=== PATIENT | female | born 1950 | race Caucasian/White ===

== ENCOUNTER → 2017-01-15 | Outpatient (CLI) | payer MEDICARE ==
--- NOTE | 2017-01-21 15:43 | P.ARTDOP ---
Arterial Doppler LOWER EXTREMITY ARTERIAL DOPPLER: DATE OF SERVICE: 01/15/2017 Reason for study: Leg pain. Doppler waveforms: Multiphasic bilaterally throughout. Pulse volume recording: Normal configuration. Pressure gradients: None significant. Ankle-brachial indices: Greater than 1 on the left and 0.96 on the right.. Toe pressures: 78 on the right, 79 on the left Impression: Normal study proximally. Possible mild disease distally but perfusion adequate for healing. Clinical correlation recommended..
== END | disposition home or self-care (01) ==
LOC: RADUSWWP 09:28
PROVIDERS: ATTEND Family Medicine
DX: M79.661 Pain in right lower leg (principal); M79.662 Pain in left lower leg
CPT/HCPCS: 93923

== ENCOUNTER 2017-09-03 15:14 | Day surgery (SDC) | payer MEDICARE ==
[2017-09-02 09:23] VITALS: BMI 23.3
[~2017-09-03 15:14] MED LIST: CLINDAMYCIN 600 MG in SODIUM CHLORIDE 0.9% IRRIGATIO 250 ML IRRIGATION ONE; CLINDAMYCIN 900 MG in DEXTROSE 5% IN WATER 50 ML IVPB ONE; SODIUM CHLORIDE 0.9% 1,000 ML IV SCH
[2017-09-03 16:03] LABS: Glucose,Whole Blood 95 mg/dL (75-99)
[2017-09-03] MEDS ORDERED: IV FLUID CONTINUATION 1,000 ML IV ONE (18:19)
[2017-09-03] MEDS ORDERED: IOPAMIDOL-250 50ML BTL IV ONE (18:29)
[2017-09-03] MEDS ORDERED: fentaNYL (PF) 50 MCG/ML 2 ML AMP ONE (18:36)
[2017-09-03] MEDS ORDERED: fentaNYL (PF) 50 MCG/ML 2 ML AMP IV ONE (18:36)
[2017-09-03] MEDS ORDERED: MIDAZOLAM 2 MG/2 ML VIAL ONE (18:42)
[2017-09-03] MEDS ORDERED: MIDAZOLAM 2 MG/2 ML VIAL IV ONE (18:44)
[2017-09-03] MEDS ORDERED: LIDOCAINE 1% INJ 10MG/ML (20 ML MDV) SQ ONE (18:44)
--- NOTE | 2017-09-03 19:43 | P.PCN ---
Preoperative Diagnosis: Patient underwent EP procedure under conscious sedation/moderate sedation, monitoring of the level of consciousness and physiologic parameters including but not limited to vital signs and oxygenation. Patient tolerated the procedure well without any acute complications. Start time: 1843 Stop time: 1937 Condition: stable Disposition: same day
[2017-09-03] MEDS ORDERED: HYDROcodone/APAP 5-325MG 1 EACH TAB PO PRN (19:45)
[2017-09-03] MEDS ORDERED: CLINDAMYCIN 900 MG in DEXTROSE 5% IN WATER 50 ML IVPB SCH ×2 (19:45)
[2017-09-03] MEDS ORDERED: ACETAMINOPHEN IV (For NPO) 1,000 MG in EMPTY BAG 1 BAG IVPB ONE (19:45)
[2017-09-03] MEDS ORDERED: LIDOCAINE 2% INJ 20 MG/ML SQ ONE (20:04)
--- NOTE | 2017-09-03 20:13 | P.PCN ---
Preoperative Diagnosis: Loop explant under sedation and local anesthesia. Patient was brought to the EP lab in a fasting state. Written informed consent was obtained prior to the procedure. The subcutaneous device was successfully explanted under local anesthesia. Preoperative antibiotics were administered. The wound was closed in layers and dressed per protocol. Result: Successful loop monitor explantation.
--- NOTE | 2017-09-03 20:13 | PCN ---
PROCEDURE NOTE 67-year-old female presenting to the hospital with a syncopal spell associated with sinus pauses greater than 3 seconds and recurrent bradycardia no reversible causes. She was referred for dual-chamber pacemaker implantation by Dr. Esther Witt and Dr. Barone. PROCEDURE: The patient is brought to the EP lab in a fasting state. Written informed consent was obtained prior to the procedure. The left shoulder area was prepped and draped as per protocol. 1% lidocaine was used for local anesthesia. A 4 cm incision was made parallel to the deltopectoral groove, about 1.5 cm medial to it. The incision was carried down to the level of the pectoralis muscle. A subfascial pocket was made. Hemostasis was assured. The left axillary vein was accessed at 2 separate points under fluoroscopy and via appropriately-sized introducer sheaths 2 leads were positioned in the right heart. The atrial lead was a [employer] serial number [id number], model #1944, 46 cm in length. Passive lead position. The right atrial appendage. P waves were 5.1 mV, pacing impedance 481 ohms, pacing threshold 0.5 V at 0.5 milliseconds 10 V test negative. The RV lead was a 58 cm passive lead model #1948, serial number [id number]. The R- waves were 9 mV, pacing impedance of 954 ohms, pacing threshold 0.5 V at 0.5 milliseconds 10 V test negative. Both leads were secured to the underlying pectoralis fascia using 2 nonabsorbable sutures and then connected to the generator [employer] model number [id number] serial #[id number]. Leads and generator were then placed in subfascial pocket. The wound was closed in 3 layers and dressed per protocol. RESULTS: Successful dual chamber pacemaker implantation for symptomatic sick sinus syndrome. Patient also has orthostatic hypotension syndrome and may require adjustment of her antihypertensive therapy in the future. She will follow up with Dr. Barone as before. She tolerated the procedure well without any acute complications. Pacing was programmed to DDD at 50 ppm. She will be assessed for any need for rate responsiveness in the future as well as the need for rate drop response. MMODL / IJN: [id number] /
[2017-09-03] MEDS: metFORMIN 500 MG TAB PO SCH (21:55)
[2017-09-03 21:58] LABS: Glucose,Whole Blood 116 mg/dL (75-99)
[2017-09-03] MEDS: SODIUM CHLORIDE 0.9% 1,000 ML IV SCH ×3 (22:07→22:08)
[2017-09-03 22:51] LABS: Anisocytosis Slight; Basophils % (A) 1 %; Eosinophils # (A) 0.4 k/uL (0-0.7); Eosinophils % (A) 6 %; HCT 27.1 % (34.0-46.0); HGB 8.4 gm/dL (11.4-16.0); Hypochromasia Slight; Lymphocytes # (A) 1.2 k/uL (1.0-4.8); Lymphocytes % (A) 17 %; MCH 25.4 pg (25.0-35.0); MCHC 30.9 g/dL (31.0-37.0); MCV 82.3 fL (80.0-100.0); Mean Platelet Volume 9.5; Monocytes # (A) 0.4 k/uL (0-1.0); Monocytes % (A) 6 %; Neutrophils % (A) 70 %; Platelet Count 308 k/uL (150-450); RBC 3.29 m/uL (3.80-5.40); RDW 17.5 % (11.5-15.5); WBC 7.2 k/uL (3.8-10.6)
[2017-09-03] MEDS: CLINDAMYCIN 900 MG in DEXTROSE 5% IN WATER 50 ML IVPB SCH ×2 (23:16)
[2017-09-04] MEDS: CLINDAMYCIN 900 MG in DEXTROSE 5% IN WATER 50 ML IVPB SCH ×6 (05:14→17:20)
[2017-09-04] MEDS: ACETAMINOPHEN TAB 325 MG TAB PO PRN ×2 (05:19→17:31)
[2017-09-04 06:20] LABS: Calcium 9.3 mg/dL (8.4-10.2); Potassium 4.9 mmol/L (3.5-5.1)
[2017-09-04 07:17] LABS: Glucose,Whole Blood 86 mg/dL (75-99)
[2017-09-04] MEDS: metFORMIN 500 MG TAB PO SCH ×2 (08:26→17:20)
--- NOTE | 2017-09-04 08:33 | XR ---
EXAMINATION TYPE: XR chest 2V DATE OF EXAM: 09/04/2017 COMPARISON: None HISTORY: 67-year-old female lead placement check TECHNIQUE: Frontal and lateral views FINDINGS: Left anterior chest wall pacemaker generator with right atrial and right ventricular leads. Heart upp er limits of normal in size. Aorta and pulmonary vasculature within normal limits. No consolidation o r pleural effusion. There is a linear density that is vertically oriented projecting at the right hil um of uncertain etiology, possible external artifact and should be reassessed at follow-up. IMPRESSION: 1. 2-lead left-sided pacemaker. 2. No acute cardiopulmonary process. 3. A vertically oriented linear density projecting at the right hilum could be external artifact. The etiology is unclear. Attention on follow-up.
[2017-09-04] MEDS ORDERED: ATORVASTATIN 40 MG TAB PO SCH (09:00)
[2017-09-04] MEDS ORDERED: amLODIPine 2.5 MG TAB PO SCH (09:00)
[2017-09-04] MEDS ORDERED: LOSARTAN 50 MG TAB PO SCH (09:00)
[2017-09-04] MEDS ORDERED: ASPIRIN 81 MG PO SCH (09:00)
--- NOTE | 2017-09-04 09:02 | P.DS ---
Providers Attending physician: Jules Veras Primary care physician: Ron [facility] Course: Patient is doing well. She has mild discomfort in the pacemaker site but otherwise no chest discomfort no shortness of breath no dizziness lightheadedness she lying comfortably in bed. She did need some pain medications through the night, Tylenol On examination she is afebrile 97.8F pulse rate in the 60s blood pressure 119/ 52 mmHg Breath sounds are clear no rhonchi no crackles Heart sounds are normal normal S1 normal S2 Abdomen soft nontender Extremities warm no edema Pacemaker site is healing well there is no hematoma, minimal soakage noted Impression Symptomatic sick sinus syndrome with presyncope and syncope, sinus pauses as well as sinus bradycardia documented in the absence of any reversible causes Status post dual-chamber pacemaker implant and explantation of the loop monitor Hypertension Plan Discharge home after completion of IV antibiotics Pacemaker interrogation today Chest x-ray was reviewed and does not show any evidence for pneumothorax Follow-up in the device clinic in [address] Sanchez as scheduled Watch for orthostatic hypotension and dysautonomia as a future cause of dizzy spells Patient Condition at Discharge: Stable Plan - Discharge Summary Discharge Rx Participant: Yes New Discharge Prescriptions: Continue RX: diphenhydrAMINE [Benadryl] 25 mg PO HS PRN PRN Reason: Allergy Symptoms RX: Olmesartan Medoxomil 40 mg PO DAILY RX: Atorvastatin [Lipitor] 40 mg PO DAILY RX: metFORMIN HCL [Glucophage] 500 mg PO BID RX: amLODIPine [Norvasc] 2.5 mg PO DAILY RX: Aspirin [Adult Low Dose Aspirin EC] 81 mg PO DAILY Discharge Medication List RX: Aspirin [Adult Low Dose Aspirin EC] 81 mg PO DAILY 05/11/17 [History] RX: Atorvastatin [Lipitor] 40 mg PO DAILY 05/11/17 [History] RX: Olmesartan Medoxomil 40 mg PO DAILY 05/11/17 [History] RX: amLODIPine [Norvasc] 2.5 mg PO DAILY 05/11/17 [History] RX: diphenhydrAMINE [Benadryl] 25 mg PO HS PRN 05/11/17 [History] RX: metFORMIN HCL [Glucophage] 500 mg PO BID 05/11/17 [History] Follow up Appointment(s)/Referral(s): Jaylen Barone MD [STAFF PHYSICIAN] - 6 Weeks Activity/Diet/Wound Care/Special Instructions: PATIENT EDUCATION MATERIAL Instructions following a heart rhythm device implant. 1. Keep dressing DRY for 5 DAYS. You may cover the area with Saran or Cling Wrap, prior to a shower. 2. The dressing will be removed in the Device Clinic @ [facility]. Absorbable sutures were used to close the wound. 3. Avoid raising the [left] arm above the shoulder level. [4 week restriction] 4. Avoid arm movements, like backscratching, rubbing the head, or pulling on a cord. (4 weeks restriction) 5. Gentle range of motion movements of the shoulder, closest to the incision should be performed to avoid a frozen shoulder. (Pendulum exercises of the shoulder) 6. The opposite arm may be used freely. 7. Avoid driving for 7 days. 8. Avoid activities such as golfing, swimming, weed whacking, lifting more than 10 pounds weight, bowling, gymnastics and weight training/lifting. (6 weeks restriction) 9. Activities such as wood chopping with an axe, pull-ups in the gymnasium, power lifting, arc-welding, being close to home induction cooktops will always be a problem. 10. Arm sling is a mere reminder not to raise the arm above the head. However you do not need to keep the arm completely immobilized. Your free to move the arm and use it and for normal activities. In case of any problems, please call [facility], Ad [place], @ [phone], Attention: Device Clinic Follow-up with Dr. Sanchez as scheduled Follow the device clinic in 5 days Discharge Disposition: HOME SELF-CARE
[2017-09-04 11:20] VITALS: BP 119/63; PULSE 69; RESP 18; TEMP 98.4
[2017-09-04 12:14] LABS: Glucose,Whole Blood 100 mg/dL (75-99)
== END 2017-09-04 19:05 | disposition home or self-care (01) ==
LOC: CATHEP 15:14 → 3OBS 19:38 → CATHEP 09-04 19:05
PROVIDERS: ATTEND Internal Medicine Clinical Cardiac Electrophysiology
DX: I49.5 Sick sinus syndrome (principal); Z45.09 Encounter for adjustment and management of other cardiac device; I10 Essential (primary) hypertension; E11.9 Type 2 diabetes mellitus without complications; Z79.84 Long term (current) use of oral hypoglycemic drugs; H35.30 Unspecified macular degeneration; M19.90 Unspecified osteoarthritis, unspecified site; Z86.73 Personal history of transient ischemic attack (TIA), and cerebral infarction without residual deficits; Z87.891 Personal history of nicotine dependence; Z79.82 Long term (current) use of aspirin; Z79.899 Other long term (current) drug therapy; Z88.1 Allergy status to other antibiotic agents; Z88.0 Allergy status to penicillin
CPT/HCPCS: 33208; 33284; 80048; 85025; 83036; 71046; C1769 ×2; C1892; C1898; C1785; J2001 ×2; J2250; J3010; Q9966

== ENCOUNTER → 2022-05-22 | Day surgery (SDC) | payer MEDICARE ==
[2022-05-19 13:24] VITALS: BMI 27.4
[~2022-05-22] MED LIST changes: -CLINDAMYCIN 600 MG in SODIUM CHLORIDE 0.9% IRRIGATIO 250 ML IRRIGATION ONE; -CLINDAMYCIN 900 MG in DEXTROSE 5% IN WATER 50 ML IVPB ONE; +IOPAMIDOL-250 50ML BTL IV ONE
[2022-05-22 13:21] LABS: Glucose,Whole Blood 143 mg/dL (70-110)
--- NOTE | 2022-05-22 13:36 | P.EPPROC ---
- EP Procedure Note Electrophysiology Procedure Note: Diagnosis Atrial lead malfunction Patient is a dual-chamber pacemaker in situ Procedure Cinefluoroscopy of the leads performed Atrial lead in the right atrium, not in the right atrial appendage No fractures or breaks noted RV lead in the RV apex Left upper extremity venogram 15 mL IV dye injected in the left arm Mild stenosis at the subclavian/axillary junction with the bridging collateral Stenosis is mild and should accommodate 1-lead Pacemaker interrogation with reprogramming The [employer] pacemaker was interrogated Noise noted in the atrial lead, minimal P waves noted in both the unipolar and bipolar configuration No atrial capture noted RV lead functioning normally Pacemaker was programmed to a VVI mode Plan Implantation of new atrial lead Dual-chamber device is approaching MURRAY, a new device would be implanted
== END ==
LOC: CATHEP 12:39
PROVIDERS: ATTEND Internal Medicine Clinical Cardiac Electrophysiology
DX: I87.1 Compression of vein (principal); E11.9 Type 2 diabetes mellitus without complications; I10 Essential (primary) hypertension; E78.5 Hyperlipidemia, unspecified; F17.210 Nicotine dependence, cigarettes, uncomplicated; Z79.899 Other long term (current) drug therapy
CPT/HCPCS: 36005; 75820; Q9966

== ENCOUNTER 2022-06-12 14:35 | Day surgery (SDC) | payer MEDICARE ==
[2022-06-11 09:15] VITALS: BMI 27.4
[~2022-06-12 14:35] MED LIST changes: +CLINDAMYCIN 600 MG in SODIUM CHLORIDE 0.9% 250 ML IRRIGATION PRN; +CLINDAMYCIN 900 MG in DEXTROSE 5% IN WATER 50 ML IVPB PRN; -IOPAMIDOL-250 50ML BTL IV ONE; -SODIUM CHLORIDE 0.9% 1,000 ML IV SCH
[2022-06-12 15:36] LABS: Glucose,Whole Blood 93 mg/dL (70-110)
[2022-06-12 15:40] VITALS: RESP 16
[2022-06-12] MEDS ORDERED: SODIUM CHLORIDE 0.9% 500 ML 500 ML IV ONE (15:41)
[2022-06-12 16:02] LABS: Basophils % (A) 0 %; Eosinophils # (A) 0.1 k/uL (0-0.7); Eosinophils % (A) 2 %; HCT 35.8 % (34.0-46.0); HGB 11.9 gm/dL (11.4-16.0); Lymphocytes # (A) 0.8 k/uL (1.0-4.8); Lymphocytes % (A) 16 %; MCH 32.6 pg (25.0-35.0); MCHC 33.4 g/dL (31.0-37.0); MCV 97.7 fL (80.0-100.0); Mean Platelet Volume 9.1; Monocytes # (A) 0.3 k/uL (0-1.0); Monocytes % (A) 6 %; Neutrophils # (A) 3.9 k/uL (1.3-7.7); Neutrophils % (A) 74 %; Platelet Count 171 k/uL (150-450); RBC 3.66 m/uL (3.80-5.40); RDW 15.8 % (11.5-15.5); WBC 5.2 k/uL (3.8-10.6)
[2022-06-12 16:10] LABS: Calcium 8.3 mg/dL (8.4-10.2); Potassium 4.6 mmol/L (3.5-5.1)
[2022-06-12] MEDS ORDERED: MIDAZOLAM 2 MG/2 ML VIAL ONE (18:48)
[2022-06-12] MEDS ORDERED: fentaNYL (PF) 50 MCG/ML 2 ML AMP ONE (18:48)
[2022-06-12] MEDS ORDERED: PROPOFOL 10 MG/ML 20 ML VIAL IV ONE (18:48)
[2022-06-12] MEDS ORDERED: VANCOMYCIN 1,000 MG VIAL ONE (18:48)
[2022-06-12] MEDS ORDERED: VANCOMYCIN 1,000 MG in SODIUM CHLORIDE 0.9% 250 ML IVPB ONE (19:13)
[2022-06-12] MEDS ORDERED: LIDOCAINE 1% INJ 10MG/ML (30 ML VIAL-PF) SQ ONE (19:29)
[2022-06-12] MEDS ORDERED: ACETAMINOPHEN TAB 325 MG TAB PO PRN (20:50)
--- NOTE | 2022-06-12 20:55 | P.EPPROC ---
- EP Procedure Note Electrophysiology Procedure Note: Diagnosis Chronic Atrial lead malfunction Device approaching MURRAY Procedure performed New atrial lead implant Old atrial lead was capped and secured to the muscle Dual-chamber pacemaker generator change Details Patient was brought to the EP lab in a fasting state. Written informed consent obtained prior to the procedure. IV antibiotics administered Left pectoral area prepped and draped as per protocol. An incision made of the wrist surgical site. Scar tissue excised Incision carried down to the level of the generator Old generator explanted Leads freed from the surrounding soft tissue and capsule Partial capsulectomy performed Axillary vein access obtained Sheath placed A screw-in [employer] clerical assistant placed in the right atrium: 46 cm tendril STS model #2088 TC Lead screwed in the right atrial appendage. Good turgor with injury excellent thresholds good stability P waves 3.9 mV, pacing impedance 600 ohms and pacing threshold 1 warted 0.4 ms Bogata test negative Sheaths removed and leads secured to the muscle Old lead capped and secured to the muscle New generator implanted Old generator explanted The new dual-chamber pacemaker generator was a [employer], [employer] assurity MRI RV threshold 1 V at 0.8 ms, R waves greater than 12 mV and pacing impedance 550 ohms Device programmed to DDD mode 50-120 PPM VIP mode to avoid RV pacing Patient HE well without any acute complications Pocket irrigated with antibiotic solution Antibiotic pouch placed Wound closed in 3 layers and dressed per protocol
[2022-06-12] MEDS: SODIUM CHLORIDE 0.9% 1,000 ML IV SCH (21:46)
[2022-06-13] MEDS: CLINDAMYCIN 900 MG in DEXTROSE 5% IN WATER 50 ML IVPB SCH ×4 (00:13→05:49)
[2022-06-13] MEDS: SODIUM CHLORIDE 0.9% 1,000 ML IV SCH (02:59)
[2022-06-13 06:07] LABS: Glucose,Whole Blood 61 mg/dL (70-110)
[2022-06-13 06:28] LABS: Glucose,Whole Blood 61 mg/dL (70-110)
[2022-06-13 06:48] LABS: Glucose,Whole Blood 52 mg/dL (70-110)
[2022-06-13 07:10] LABS: Glucose,Whole Blood 80 mg/dL (70-110)
--- NOTE | 2022-06-13 08:07 | P.DS ---
Providers Attending physician: Jules Veras Primary care physician: Ron [facility] Course: Patient was resting comfortably in bed Pacemaker site is healed well No hematoma Minimal soakage On examination normal heart sounds Breath sounds are equal Pulse rate in the 50s and 60s Blood pressure 136/62 mmHg Impression Sinus bradycardia status post dual-chamber pacemaker implantation many years back Atrial lead malfunction Underwent implantation of a new atrial lead successfully and the dual-chamber pacemaker generator change Plan discharge home today after pacemaker interrogation Follow-up with Dr. Sanchez in a week in the device clinic Plan - Discharge Summary Discharge Rx Participant: No New Discharge Prescriptions: Continue RX: diphenhydrAMINE [Benadryl] 25 mg PO HS PRN PRN Reason: Allergy Symptoms RX: Olmesartan Medoxomil 40 mg PO DAILY RX: Atorvastatin [Lipitor] 40 mg PO HS RX: Aspirin [Adult Low Dose Aspirin EC] 81 mg PO DAILY RX: Gabapentin [Neurontin] 100 mg PO HS RX: Metoprolol Succinate [Metoprolol Succinate ER] 25 mg PO DAILY Discharge Medication List RX: Aspirin [Adult Low Dose Aspirin EC] 81 mg PO DAILY 05/11/17 [History] RX: Atorvastatin [Lipitor] 40 mg PO HS 05/11/17 [History] RX: Olmesartan Medoxomil 40 mg PO DAILY 05/11/17 [History] RX: diphenhydrAMINE [Benadryl] 25 mg PO HS PRN 05/11/17 [History] RX: Gabapentin [Neurontin] 100 mg PO HS 05/19/22 [History] RX: Metoprolol Succinate [Metoprolol Succinate ER] 25 mg PO DAILY 05/19/22 [History] Follow up Appointment(s)/Referral(s): Jaylen Barone MD [STAFF PHYSICIAN] - 1 Week Activity/Diet/Wound Care/Special Instructions: PATIENT EDUCATION MATERIAL Instructions following a heart rhythm device implant. 1. Keep dressing DRY for 5 DAYS. You may cover the area with Saran or Cling Wrap, prior to a shower. 2. The dressing will be removed in the Device Clinic at [facility]. Absorbable sutures were used to close the wound. 3. Avoid raising the left arm above the shoulder level. 4 week restriction 4. Avoid arm movements, like backscratching, rubbing the head, or pulling on a cord. 4 weeks restriction 5. Gentle range of motion movements of the shoulder, closest to the incision should be performed to avoid a frozen shoulder. (Pendulum exercises of the shoulder) 6. The opposite arm may be used freely. 7. Avoid driving for 7 days. 8. Avoid activities such as golfing, swimming, weed whacking, lifting more than 10 pounds weight, bowling, gymnastics and weight training/lifting. (6 weeks restriction) 9. Activities such as wood chopping with an axe, pull-ups in the gymnasium, power lifting, arc-welding, being close to home induction cooktops will always be a problem. 10. Arm sling is only a reminder not to raise the arm above the head. You do not need to keep the arm completely immobilized. Your free to move the arm and use it and for normal activities. In case of any problems, please call [facility], [place], @ [phone], Attention: Device Clinic Device clinic follow-up in 5 days Follow-up with primary home housekeeper in 2-3 months Discharge Disposition: HOME SELF-CARE
--- NOTE | 2022-06-13 08:15 | XR ---
EXAMINATION TYPE: XR chest 1V portable DATE OF EXAM: 06/13/2022 Comparison: 09/04/2017 Clinical History: 71-year-old female Lead placement check Findings: Left anterior chest wall pacemaker generator with 2 right atrial and right ventricular leads. Cholecy stectomy clips. Heart mild to moderately enlarged. No jevon consolidation or pleural effusion. Impression: Mild to moderate cardiomegaly. No definite acute process.
[2022-06-13 09:07] VITALS: BP 144/59; PULSE 70; TEMP 97.8
== END 2022-06-13 10:18 | disposition home or self-care (01) ==
LOC: CATHEP 14:35 → 6NMEDSUR 20:30 → CATHEP 06-13 10:18
PROVIDERS: ATTEND Internal Medicine Clinical Cardiac Electrophysiology
DX: T82.110A Breakdown (mechanical) of cardiac electrode, initial encounter (principal); I49.5 Sick sinus syndrome; E78.5 Hyperlipidemia, unspecified; E11.9 Type 2 diabetes mellitus without complications; I10 Essential (primary) hypertension; F17.210 Nicotine dependence, cigarettes, uncomplicated; Z79.899 Other long term (current) drug therapy; Z79.82 Long term (current) use of aspirin
CPT/HCPCS: 33206; 33233; 80048; 85025; 71045; C1769 ×2; C1892; C1898; C1785; J2250; J3370; J2001; J3010; J2704

== ENCOUNTER 2024-03-11 12:50 | Inpatient (IN) | payer MEDICARE ==
--- NOTE | 2024-03-11 13:32 | ED ---
General Adult HPI - General Chief complaint: Syncope Stated complaint: Syncope Time Seen by Provider: 03/11/24 12:51 Source: patient, EMS Mode of arrival: EMS Limitations: no limitations - History of Present Illness Initial comments: 73-year-old female with past medical history of CVA, diabetes, pacemaker placement who presents to the emergency department after a syncopal episode. Patient was shopping at [employer] when she passed out. She states that she was checking out at the front when she felt lightheaded. Then asked thing she knew she was on the ground and staff members were tending to her. EMS was called to the scene and found the patient to have an extremely low blood pressure. Accu- Chek was normal. Patient transported to our facility for further evaluation. Heart rate was noted to be in the 40s. Patient does have a pacemaker. States that it was inserted for low heart rate. Has yearly cardiology follow-ups. She denies any chest pain. Admits that she did not eat breakfast this morning. She denies any injuries from her syncopal episode. No shortness of breath. Denies fevers, chills or cough. No other alleviating, precipitating or modifying factors - Related Data Home Medications Medication Instructions Recorded Confirmed Aspirin [Adult Low Dose Aspirin EC] 81 mg PO DAILY 05/11/17 03/11/24 Atorvastatin [Lipitor] 40 mg PO HS 05/11/17 03/11/24 Gabapentin [Neurontin] 100 mg PO HS 05/19/22 03/11/24 amLODIPine [Norvasc] 5 mg PO DAILY 03/11/24 03/11/24 Previous Rx's Medication Instructions Recorded Olmesartan Medoxomil 20 mg PO DAILY #0 03/12/24 Allergies Allergy/AdvReac Type Severity Reaction Status Date / Time amoxicillin Allergy Rash/Hives Verified 03/11/24 15:23 azithromycin Allergy Rash/Hives Verified 03/11/24 15:23 [From Zithromax Z-Bulmaro] erythromycin base Allergy Rash/Hives Verified 03/11/24 15:23 Review of Systems ROS Statement: Those systems with pertinent positive or pertinent negative responses have been documented in the HPI. ROS Other: All systems not noted in ROS Statement are negative. Past Medical History Past Medical History: CVA/TIA, Diabetes Mellitus, Hearing Disorder / Deafness, Hyperlipidemia, Hypertension, Osteoarthritis (OA), Syncope Additional Past Medical History / Comment(s): SEE DR WELCH'S H&P FOR CARDIAC HISTORY, DIET CONTROLLED DIABETIC. occ. rt arm weakness and slight memory issue since stroke 07/31/15, PAST HX-migraines History of Any Multi-Drug Resistant Organisms: None Reported Past Surgical History: Adenoidectomy, Cholecystectomy, Pacemaker, Tonsillectomy Additional Past Surgical History / Comment(s): carrol cataracts with lens implants, loop recorder. since removed 06/2017, pacemaker generator change and atrial lead insertion 06/12/2022 Past Anesthesia/Blood Transfusion Reactions: Motion Sickness, Postoperative Nausea & Vomiting (PONV) Type of Cardiac Device: Permanent Pacemaker Device Placement Date:: 2017 Past Psychological History: No Psychological Hx Reported Smoking Status: Former smoker Past Alcohol Use History: None Reported Past Drug Use History: None Reported - Past Family History Mother Family Medical History: CVA/TIA, Hypertension Sister(s) Family Medical History: Cancer Additional Family Medical History / Comment(s): uterine and lymphoma Father Family Medical History: No Reported History General Exam Limitations: no limitations General appearance: alert, in no apparent distress Head exam: Present: atraumatic, normocephalic, normal inspection Eye exam: Present: normal appearance, PERRL, EOMI. Absent: scleral icterus, conjunctival injection, periorbital swelling ENT exam: Present: normal exam, mucous membranes moist Neck exam: Present: normal inspection. Absent: tenderness, meningismus, lymph adenopathy Respiratory exam: Present: normal lung sounds bilaterally. Absent: respiratory distress, wheezes, rales, rhonchi, stridor Cardiovascular Exam: Present: normal rhythm, bradycardia, normal heart sounds. Absent: systolic murmur, diastolic murmur, rubs, gallop, clicks GI/Abdominal exam: Present: soft, normal bowel sounds. Absent: distended, tenderness, guarding, rebound, rigid Extremities exam: Present: normal inspection, full ROM, normal capillary refill. Absent: tenderness, pedal edema, joint swelling, calf tenderness Back exam: Present: normal inspection Neurological exam: Present: alert, oriented X3, CN II-XII intact Psychiatric exam: Present: normal affect, normal mood Skin exam: Present: warm, dry, intact, normal color. Absent: rash Course Vital Signs 03/11/24 03/11/24 03/11/24 12:51 14:30 17:41 Temperature 97.8 F Pulse Rate 51 L 50 L 51 L Pulse Rate [ Right Standing Panel Wirer ] Pulse Rate [ Right Supine Panel Wirer ] Respiratory 18 18 18 Rate Blood Pressure 143/61 130/58 150/55 Blood Pressure [Right Arm Sitting] Blood Pressure [Right Arm Standing] Blood Pressure [Right Arm Supine] O2 Sat by Pulse 97 96 99 Oximetry 03/11/24 03/11/24 19:26 20:37 Temperature 97.8 F Pulse Rate 69 Pulse Rate [ 74 Right Standing Panel Wirer ] Pulse Rate [ 49 L Right Supine Panel Wirer ] Respiratory 16 15 Rate Blood Pressure 152/47 Blood Pressure 161/71 [Right Arm Sitting] Blood Pressure 152/47 [Right Arm Standing] Blood Pressure 147/55 [Right Arm Supine] O2 Sat by Pulse 94 L 96 Oximetry Medical Decision Making - Medical Decision Making Was pt. sent in by a medical professional or institution (, PA, [employer], urgent care, hospital, or fci...) When possible be specific @ -No Did you speak to anyone other than the patient for history (EMS, parent, family, police, friend...)? What history was obtained from this source @ -Spoke with EMS for history Did you review nursing and triage notes (agree or disagree)? Why? @ -I reviewed and agree with nursing and triage notes Were old charts reviewed (outside hosp., previous admission, EMS record, old EKG, old radiological studies, urgent care reports/EKG's, fci records)? Report findings @ -No old charts were reviewed Differential Diagnosis (chest pain, altered mental status, abdominal pain women, abdominal pain men, vaginal bleeding, weakness, fever, dyspnea, syncope, headache, dizziness, GI bleed, back pain, seizure, CVA, palpatations, mental health, musculoskeletal)? @ -Differential Syncope: Valvular disease, hypertrophic cardiomyopathy, pulmonary embolism, tamponade, tachycardia, bradycardia, [place], hypovolemia, hemorrhage, dissection, anemia, intracranial hemorrhage, seizure, hypoglycemia, carbon monoxide poisoning, this is not meant to be an all-inclusive list. EKG interpreted by me (3pts min.). @ -Yes and demonstrates atrial pacemaker with a rate of 49. NE interval 165. QRS 82. QTc of 408. No acute ST segment elevations or depressions X-rays interpreted by me (1pt min.). @ -Yes and demonstrates retrocardiac opacity CT interpreted by me (1pt min.). @ -None done U/S interpreted by me (1pt. min.). @ -None done What testing was considered but not performed or refused? (CT, X-rays, U/S, labs)? Why? @ -None What meds were considered but not given or refused? Why? @ -None Did you discuss the management of the patient with other professionals (professionals i.e. DrKristopher, PA, [employer], lab, RT, psych nurse, group social worker, cemetery manager, teacher, police officer booking, case picker)? Give summary @ -Spoke with Dr. Guerrero for admission Was smoking cessation discussed for >3mins.? @ -No Was critical care preformed (if so, how long)? @ -No Were there social determinants of health that impacted care today? How? (Homelessness, low income, unemployed, alcoholism, drug addiction, transportation, low edu. Level, literacy, decrease access to med. care, skilled nursing, rehab)? @ -No Was there de-escalation of care discussed even if they declined (Discuss DNR or withdrawal of care, Hospice)? DNR status @ -No What co-morbidities impacted this encounter? (DM, HTN, Smoking, COPD, CAD, Cancer, CVA, ARF, Chemo, Hep., AIDS, mental health diagnosis, sleep apnea, morbid obesity)? @ -Pacemaker Was patient admitted / discharged? Hospital course, mention meds given and route, prescriptions, significant lab abnormalities, going to OR and other pertinent info. @ -Upon arrival patient seen and evaluated in room 1. Thorough history and physical exam was performed. IV was established and laboratory studies are conducted. Chest x-ray was performed. We did interrogate the patient's [employer] device which demonstrates that her low threshold is 50. Patient is consistently pacing below 50. Because of this I did recommend admission for cardiology consultation. Spoke with Dr. Guerrero for admission. I will hold off on antibiotics as patient has no clinical signs of pneumonia Undiagnosed new problem with uncertain prognosis? @ -No Drug Therapy requiring intensive monitoring for toxicity (Heparin, Nitro, Insulin, Cardizem)? @ -No Were any procedures done? @ -No Diagnosis/symptom? @ -Acute syncope, bradycardia Acute, or Chronic, or Acute on Chronic? @ -Acute Uncomplicated (without systemic symptoms) or Complicated (systemic symptoms)? @Complicated Side effects of treatment? @ -No Exacerbation, Progression, or Severe Exacerbation? @ -No Poses a threat to life or bodily function? How? (Chest pain, [place], [place], pneumonia, PE, COPD, DKA, ARF, appy, cholecystitis, CVA, Diverticulitis, Homicidal, [facility] icidal, threat to staff... and all critical care pts) @ -No - Lab Data Result diagrams: 03/12/24 07:09 03/12/24 07:09 Lab Results 03/11/24 03/11/24 03/11/24 Range/Units 13:49 13:49 13:49 WBC 7.1 (3.8-10.6) k/uL RBC 3.61 L (3.80-5.40) m/uL Hgb 11.1 L (11.4-16.0) gm/dL Hct 33.4 L (34.0-46.0) % MCV 92.6 (80.0-100.0) fL MCH 30.7 (25.0-35.0) pg MCHC 33.2 (31.0-37.0) g/dL RDW 16.3 H (11.5-15.5) % Plt Count 212 (150-450) k/uL MPV 9.6 Neutrophils % 76 % Lymphocytes % 14 % Monocytes % 6 % Eosinophils % 3 % Basophils % 0 % Neutrophils # 5.4 (1.3-7.7) k/uL Lymphocytes # 1.0 (1.0-4.8) k/uL Monocytes # 0.4 (0-1.0) k/uL Eosinophils # 0.2 (0-0.7) k/uL Basophils # 0.0 (0-0.2) k/uL Anisocytosis Slight PT 10.1 (10.0-12.5) sec INR 0.9 (<1.2) APTT 21.4 L (22.0-30.0) sec Sodium 140 (137-145) mmol/L Potassium 4.6 (3.5-5.1) mmol/L Chloride 109 H (98-107) mmol/L Carbon Dioxide 27 (22-30) mmol/L Anion Gap 4 mmol/L BUN 22 H (7-17) mg/dL Creatinine 1.85 H (0.52-1.04) mg/dL Est GFR (CKD-EPI)AfAm 31 (>60 ml/min/1.73 sqM) Est GFR (CKD-EPI)NonAf 27 (>60 ml/min/1.73 sqM) Glucose 158 H (74-99) mg/dL Calcium 8.8 (8.4-10.2) mg/dL Magnesium (1.6-2.3) mg/dL Total Bilirubin 0.6 (0.2-1.3) mg/dL AST 27 (14-36) U/L ALT 23 (4-34) U/L Alkaline Phosphatase 129 H (38-126) U/L Troponin I (0.000-0.034) ng/mL Total Protein 5.8 L (6.3-8.2) g/dL Albumin 3.4 L (3.5-5.0) g/dL Procalcitonin (0.02-0.50) ng/mL TSH (0.465-4.680) mIU/L Free T4 (0.78-2.19) ng/dL 03/11/24 03/11/24 03/11/24 Range/Units 13:49 13:49 13:49 WBC (3.8-10.6) k/uL RBC (3.80-5.40) m/uL Hgb (11.4-16.0) gm/dL Hct (34.0-46.0) % MCV (80.0-100.0) fL MCH (25.0-35.0) pg MCHC (31.0-37.0) g/dL RDW (11.5-15.5) % Plt Count (150-450) k/uL MPV Neutrophils % % Lymphocytes % % Monocytes % % Eosinophils % % Basophils % % Neutrophils # (1.3-7.7) k/uL Lymphocytes # (1.0-4.8) k/uL Monocytes # (0-1.0) k/uL Eosinophils # (0-0.7) k/uL Basophils # (0-0.2) k/uL Anisocytosis PT (10.0-12.5) sec INR (<1.2) APTT (22.0-30.0) sec Sodium (137-145) mmol/L Potassium (3.5-5.1) mmol/L Chloride (98-107) mmol/L Carbon Dioxide (22-30) mmol/L Anion Gap mmol/L BUN (7-17) mg/dL Creatinine (0.52-1.04) mg/dL Est GFR (CKD-EPI)AfAm (>60 ml/min/1.73 sqM) Est GFR (CKD-EPI)NonAf (>60 ml/min/1.73 sqM) Glucose (74-99) mg/dL Calcium (8.4-10.2) mg/dL Magnesium 1.9 (1.6-2.3) mg/dL Total Bilirubin (0.2-1.3) mg/dL AST (14-36) U/L ALT (4-34) U/L Alkaline Phosphatase (38-126) U/L Troponin I <0.012 (0.000-0.034) ng/mL Total Protein (6.3-8.2) g/dL Albumin (3.5-5.0) g/dL Procalcitonin 0.04 (0.02-0.50) ng/mL TSH (0.465-4.680) mIU/L Free T4 (0.78-2.19) ng/dL 03/11/24 Range/Units 13:49 WBC (3.8-10.6) k/uL RBC (3.80-5.40) m/uL Hgb (11.4-16.0) gm/dL Hct (34.0-46.0) % MCV (80.0-100.0) fL MCH (25.0-35.0) pg MCHC (31.0-37.0) g/dL RDW (11.5-15.5) % Plt Count (150-450) k/uL MPV Neutrophils % % Lymphocytes % % Monocytes % % Eosinophils % % Basophils % % Neutrophils # (1.3-7.7) k/uL Lymphocytes # (1.0-4.8) k/uL Monocytes # (0-1.0) k/uL Eosinophils # (0-0.7) k/uL Basophils # (0-0.2) k/uL Anisocytosis PT (10.0-12.5) sec INR (<1.2) APTT (22.0-30.0) sec Sodium (137-145) mmol/L Potassium (3.5-5.1) mmol/L Chloride (98-107) mmol/L Carbon Dioxide (22-30) mmol/L Anion Gap mmol/L BUN (7-17) mg/dL Creatinine (0.52-1.04) mg/dL Est GFR (CKD-EPI)AfAm (>60 ml/min/1.73 sqM) Est GFR (CKD-EPI)NonAf (>60 ml/min/1.73 sqM) Glucose (74-99) mg/dL Calcium (8.4-10.2) mg/dL Magnesium (1.6-2.3) mg/dL Total Bilirubin (0.2-1.3) mg/dL AST (14-36) U/L ALT (4-34) U/L Alkaline Phosphatase (38-126) U/L Troponin I (0.000-0.034) ng/mL Total Protein (6.3-8.2) g/dL Albumin (3.5-5.0) g/dL Procalcitonin (0.02-0.50) ng/mL TSH 5.400 H (0.465-4.680) mIU/L Free T4 1.43 (0.78-2.19) ng/dL Disposition Clinical Impression: Syncope, Bradycardia Disposition: ADMITTED IP TO THIS [facility] Condition: Stable Is patient prescribed a controlled substance at d/c from ED?: No Time of Disposition: 16:08 Decision to Admit Reason: Admit from EC Decision Date: 03/11/24 Decision Time: 16:08
[2024-03-11] MEDS: SODIUM CHLORIDE 0.9% 500 ML 500 ML IV STA (13:50)
--- NOTE | 2024-03-11 13:54 | XR ---
EXAMINATION TYPE: XR chest 2V DATE OF EXAM: 03/11/2024 1:44 PM COMPARISON: Chest radiographs from 06/13/2022 TECHNIQUE: XR chest 2V Frontal and lateral views of the chest. CLINICAL INDICATION:Female, 73 years old with history of syncope; FINDINGS: Lungs/Pleura: No pleural effusion or pneumothorax. Retrocardiac airspace opacity on lateral view. Pulmonary vascularity: Unremarkable. Heart/mediastinum: Cardiomediastinal silhouette is enlarged and stable. Three lead cardiac conduction device overlying the left hemithorax with lead tips projecting over the right ventricle, right atriu m and coronary sinus. Musculoskeletal: No acute osseous pathology. IMPRESSION: 1. Retrocardiac airspace opacity concerning for pneumonia. 2. Cardiomegaly. [facility], , 03/11/2024 1:52 PM
[2024-03-11 13:59] LABS: Anisocytosis Slight; Basophils % (A) 0 %; Eosinophils # (A) 0.2 k/uL (0-0.7); Eosinophils % (A) 3 %; HCT 33.4 % (34.0-46.0); HGB 11.1 gm/dL (11.4-16.0); Lymphocytes % (A) 14 %; MCH 30.7 pg (25.0-35.0); MCHC 33.2 g/dL (31.0-37.0); MCV 92.6 fL (80.0-100.0); Mean Platelet Volume 9.6; Monocytes # (A) 0.4 k/uL (0-1.0); Monocytes % (A) 6 %; Neutrophils # (A) 5.4 k/uL (1.3-7.7); Neutrophils % (A) 76 %; Platelet Count 212 k/uL (150-450); RBC 3.61 m/uL (3.80-5.40); RDW 16.3 % (11.5-15.5); WBC 7.1 k/uL (3.8-10.6)
[2024-03-11 14:14] LABS: INR 0.9 (<1.2); Prothrombin Time 10.1 sec (10.0-12.5)
[2024-03-11 14:15] LABS: Partial Thromboplastin Time 21.4 sec (22.0-30.0)
[2024-03-11 14:19] LABS: ALT 23 U/L (4-34); AST 27 U/L (14-36); African American GFR (CKD) 31 (>60 ml/min/1.73 sqM); Albumin 3.4 g/dL (3.5-5.0); Alkaline Phosphatase 129 U/L (38-126); Anion Gap 4 mmol/L; Blood Urea Nitrogen 22 mg/dL (7-17); Calcium 8.8 mg/dL (8.4-10.2); Carbon Dioxide 27 mmol/L (22-30); Chloride 109 mmol/L (98-107); Glucose 158 mg/dL (74-99); Non-African American GFR(CKD) 27 (>60 ml/min/1.73 sqM); Potassium 4.6 mmol/L (3.5-5.1); Sodium 140 mmol/L (137-145); Total Bilirubin 0.6 mg/dL (0.2-1.3); Total Protein 5.8 g/dL (6.3-8.2)
[2024-03-11] MEDS ORDERED: NALOXONE 0.4 MG/ML 1 ML VIAL IV PRN (16:10)
--- NOTE | 2024-03-11 16:32 | P.HPIM ---
History of Present Illness H&P Date: 03/11/24 Patient is a 73-year-old female with history of pacemaker placement for recurrent bradycardia, hypertension, dyslipidemia, presenting with presyncopal episode. Patient claims that she was in her usual state of health, went to grocery shopping and during checkout she felt lightheaded. EMS was called. She was also hypotensive at that time. Denies any chest pain, shortness of breath, cough, sputum production, abdominal pain, nausea, vomiting, urinary or bowel complaints. She sees cardiology outpatient for her permanent pacemaker. She denies any fevers or chills recent. In the ED, temperature was 97.8, pulse 51, respiratory rate 18, blood pressure 143/61, saturating at 97% on room air. Chest x-ray independently interpreted, shows possible retrocardiac opacity, pacemaker in place. WBC 7.1, hemoglobin 11.1, platelet 212, potassium 4.6, creatinine 1.85 around baseline, troponin negative. Patient being admitted as observation for further syncope workup as well as possible pacemaker malfunction. Pertinent positives and negatives as discussed in HPI, a complete review of sy stems was performed and all other systems are negative. Patient seen and examined at bedside. Vital signs reviewed General: nontoxic, no distress, appears at stated age Derm: warm, dry Head: atraumatic, normocephalic, symmetric Eyes: EOMI, no lid lag, anicteric sclera, pupils equal round reactive to light ENT: Nose and ears atraumatic Neck: No thyromegaly, supple Mouth: no lip lesion, mucus membranes moist Cardiovascular: S1S2 reg, no murmur, no edema Lungs: clear to auscultation bilateral, no rhonchi, no rales, no wheeze, no accessory muscle use Abdominal: soft, nontender to palpation, no guarding, no appreciable organomegaly Ext: no gross muscle atrophy, muscle strength muscle strength 5 out of 5 in all 4 extremities, no contractures Neuro: CN II-XII grossly intact Psych: Alert, oriented, appropriate affect Assessment/Plan: Active: Presyncope Symptomatic bradycardia Status post pacemaker placement -Hold metoprolol -Continue telemetry monitoring -Magnesium and TSH ordered -Device was interrogated -Cardiology consulted -Orthostatic vitals ordered Suspected pneumonia on chest x-ray -No significant clinical symptoms -Procalcitonin ordered -Sputum cultures ordered -Hold off antibiotics Hypertension -Continue amlodipine 5 mg daily, olmesartan 40 mg daily Dyslipidemia -Continue atorvastatin 40 mg daily Neuropathic pain -Continue gabapentin 200 nightly CKD stage III -Currently stable, continue to monitor The patient is admitted with an anticipated less than 2 midnight stay as observation status for evaluation of presyncope. Surrogate decision-maker: Sibling CODE STATUS: Full code DVT prophylaxis: Subcu heparin Anticipated discharge date: Pending clinical course Anticipated discharge place: Pending clinical course A total of 55 minutes was spent on the care of this complex patient more than 50% of the time was spent in counseling and care coordination. Past Medical History Past Medical History: CVA/TIA, Diabetes Mellitus, Hearing Disorder / Deafness, Hyperlipidemia, Hypertension, Osteoarthritis (OA), Syncope Additional Past Medical History / Comment(s): SEE DR WELCH'S H&P FOR CARDIAC HISTORY, DIET CONTROLLED DIABETIC. occ. rt arm weakness and slight memory issue since stroke 07/31/15, PAST HX-migraines History of Any Multi-Drug Resistant Organisms: None Reported Past Surgical History: Adenoidectomy, Cholecystectomy, Pacemaker, Tonsillectomy Additional Past Surgical History / Comment(s): carrol cataracts with lens implants, loop recorder. since removed 06/2017, pacemaker generator change and atrial lead insertion 06/12/2022 Past Anesthesia/Blood Transfusion Reactions: Motion Sickness, Postoperative Nausea & Vomiting (PONV) Type of Cardiac Device: Permanent Pacemaker Device Placement Date:: 2017 Past Psychological History: No Psychological Hx Reported Smoking Status: Former smoker Past Alcohol Use History: None Reported Past Drug Use History: None Reported - Past Family History Mother Family Medical History: CVA/TIA, Hypertension Sister(s) Family Medical History: Cancer Additional Family Medical History / Comment(s): uterine and lymphoma Father Family Medical History: No Reported History Medications and Allergies Home Medications Medication Instructions Recorded Confirmed Type Aspirin [Adult Low Dose Aspirin EC] 81 mg PO DAILY 05/11/17 03/11/24 History Atorvastatin [Lipitor] 40 mg PO HS 05/11/17 03/11/24 History Olmesartan Medoxomil 40 mg PO DAILY 05/11/17 03/11/24 History Gabapentin [Neurontin] 100 mg PO HS 05/19/22 03/11/24 History Metoprolol Succinate [Metoprolol 25 mg PO DAILY 05/19/22 03/11/24 History Succinate ER] amLODIPine [Norvasc] 5 mg PO DAILY 03/11/24 03/11/24 History Allergies Allergy/AdvReac Type Severity Reaction Status Date / Time amoxicillin Allergy Rash/Hives Verified 03/11/24 15:23 azithromycin Allergy Rash/Hives Verified 03/11/24 15:23 [From Zithromax Z-Bulmaro] erythromycin base Allergy Rash/Hives Verified 03/11/24 15:23 Physical Exam Vitals: Vital Signs Temp Pulse Resp BP Pulse Ox 03/11/24 14:30 50 L 18 130/58 96 03/11/24 12:51 97.8 F 51 L 18 143/61 97 Intake and Output 03/11/24 03/11/24 03/11/24 06:59 14:59 22:59 Other: Weight 66.678 kg Results CBC & Chem 7: 03/11/24 13:49 03/11/24 13:49 Labs: Abnormal Lab Results - Last 24 Hours (Table) 03/11/24 03/11/24 03/11/24 Range/Units 13:49 13:49 13:49 RBC 3.61 L (3.80-5.40) m/uL Hgb 11.1 L (11.4-16.0) gm/dL Hct 33.4 L (34.0-46.0) % RDW 16.3 H (11.5-15.5) % APTT 21.4 L (22.0-30.0) sec Chloride 109 H (98-107) mmol/L BUN 22 H (7-17) mg/dL Creatinine 1.85 H (0.52-1.04) mg/dL Glucose 158 H (74-99) mg/dL Alkaline Phosphatase 129 H (38-126) U/L Total Protein 5.8 L (6.3-8.2) g/dL Albumin 3.4 L (3.5-5.0) g/dL
[2024-03-11 20:30] LABS: T4, Free (Free Thyroxine) 1.43 ng/dL (0.78-2.19)
[2024-03-11 21:12] LABS: Glucose,Whole Blood 106 mg/dL (70-110)
[2024-03-11] MEDS: GABAPENTIN 100 MG CAP PO SCH (21:15)
[2024-03-11] MEDS: ATORVASTATIN 40 MG TAB PO SCH (21:15)
[2024-03-11 21:57] VITALS: RESP 16
[2024-03-11] MEDS: HEPARIN SODIUM,PORCINE 5,000 UNIT/ML 1 ML VIAL SQ SCH (23:03)
[2024-03-12 06:51] LABS: Glucose,Whole Blood 96 mg/dL (70-110)
[2024-03-12 07:53] LABS: African American GFR (CKD) 31 (>60 ml/min/1.73 sqM); Anion Gap 2 mmol/L; Blood Urea Nitrogen 23 mg/dL (7-17); Calcium 8.7 mg/dL (8.4-10.2); Carbon Dioxide 28 mmol/L (22-30); Chloride 110 mmol/L (98-107); Glucose 92 mg/dL (74-99); Non-African American GFR(CKD) 27 (>60 ml/min/1.73 sqM); Potassium 4.7 mmol/L (3.5-5.1); Sodium 140 mmol/L (137-145)
[2024-03-12] MEDS: LOSARTAN 50 MG TAB PO SCH (08:13)
[2024-03-12] MEDS: ASPIRIN 81 MG PO SCH (08:13)
[2024-03-12] MEDS: amLODIPine 5 MG TAB PO SCH (08:14)
[2024-03-12 08:18] LABS: Anisocytosis Slight; HCT 29.6 % (34.0-46.0); HGB 9.8 gm/dL (11.4-16.0); Lymphocytes % (A) 21 %; MCH 30.7 pg (25.0-35.0); MCHC 33.1 g/dL (31.0-37.0); MCV 92.7 fL (80.0-100.0); Mean Platelet Volume 9.8; Neutrophils % (A) 64 %; Platelet Count 195 k/uL (150-450); RDW 16.2 % (11.5-15.5); WBC 6.4 k/uL (3.8-10.6)
[2024-03-12 08:19] LABS: Basophils % (A) 1 %; Eosinophils # (A) 0.3 k/uL (0-0.7); Eosinophils % (A) 5 %; Lymphocytes # (A) 1.4 k/uL (1.0-4.8); Monocytes # (A) 0.5 k/uL (0-1.0); Monocytes % (A) 8 %; Neutrophils # (A) 4.1 k/uL (1.3-7.7)
[2024-03-12 11:19] VITALS: TEMP 97.9
[2024-03-12 11:23] VITALS: BP 112/73; PULSE 62
[2024-03-12 11:45] LABS: Glucose,Whole Blood 109 mg/dL (70-110)
--- NOTE | 2024-03-12 12:11 | P.PN ---
Subjective Progress Note Date: 03/12/24 Hospital Course: Patient is a 73-year-old female with history of pacemaker placement for recurr ent bradycardia, hypertension, dyslipidemia, presenting with presyncopal episode. In the ED, temperature was 97.8, pulse 51, respiratory rate 18, blood pressure 143/61, saturating at 97% on room air. Chest x-ray independently interpreted, shows possible retrocardiac opacity, pacemaker in place. WBC 7.1, hemoglobin 11.1, platelet 212, potassium 4.6, creatinine 1.85 around baseline, troponin negative. Patient being admitted as observation for further presyncope workup as well as possible pacemaker malfunction. Subjective: Patient seen and examined at bedside. No acute events overnight. Denies any further presyncopal episodes. Pertinent positives and negatives as discussed above, a complete review of systems was performed and all other systems are negative. Vitals Signs Reviewed. General: Nontoxic, no distress, appears at stated age Derm: Warm, dry Head: Atraumatic, normocephalic, symmetric Eyes: EOMI, no lid lag, anicteric sclera Mouth: No lip lesion, mucus membranes moist Cardiovascular: S1S2 reg, no murmur Lungs: CTA bilateral, no rhonchi, no rales, no accessory muscle use Abdominal: Soft, nontender to palpation, no guarding, no appreciable organomegaly Ext: No gross muscle atrophy, no edema, no contractures Neuro: CN II-XI grossly intact, no focal neuro deficits Psych: Alert, oriented, appropriate affect Data Reviewed Today: Pertinent Labs: Imaging: Assessment and Plan: Presyncope Symptomatic bradycardia Status post pacemaker placement -Hold metoprolol -Continue telemetry monitoring -Device was interrogated -Cardiology consulted, pending recommendation -Orthostatic negative -Possible vasovagal Suspected pneumonia on chest x-ray, likely -No significant clinical symptoms -Procalcitonin negative -Sputum cultures pending -Hold off antibiotics Hypertension -Continue amlodipine 5 mg daily, olmesartan 40 mg daily Dyslipidemia -Continue atorvastatin 40 mg daily Neuropathic pain -Continue gabapentin 200 nightly CKD stage III -Currently stable, continue to monitor DVT ppx: Subcu heparin Code status: Full code Anticipated discharge place: Home Anticipated discharge time: Pending clinical course Objective - Vital Signs Vital signs: Vital Signs Temp 97.9 F 03/12/24 11:16 Pulse 62 10/12/24 11:21 Resp 16 03/12/24 11:16 BP 112/73 03/12/24 11:21 Pulse Ox 95 03/12/24 11:16 FiO2 Intake & Output 03/11/24 03/12/24 03/12/24 18:59 06:59 18:59 Weight 66.678 kg 62.5 kg Other: Voiding Method Toilet # Voids 1 - Labs CBC & Chem 7: 03/12/24 07:09 03/12/24 07:09 Labs: Abnormal Lab Results - Last 24 Hours (Table) 03/11/24 03/11/24 03/11/24 Range/Units 13:49 13:49 13:49 RBC 3.61 L (3.80-5.40) m/uL Hgb 11.1 L (11.4-16.0) gm/dL Hct 33.4 L (34.0-46.0) % RDW 16.3 H (11.5-15.5) % APTT 21.4 L (22.0-30.0) sec Chloride 109 H (98-107) mmol/L BUN 22 H (7-17) mg/dL Creatinine 1.85 H (0.52-1.04) mg/dL Glucose 158 H (74-99) mg/dL Alkaline Phosphatase 129 H (38-126) U/L Total Protein 5.8 L (6.3-8.2) g/dL Albumin 3.4 L (3.5-5.0) g/dL TSH (0.465-4.680) mIU/L 03/11/24 03/12/24 03/12/24 Range/Units 13:49 07:09 07:09 RBC 3.20 L (3.80-5.40) m/uL Hgb 9.8 L (11.4-16.0) gm/dL Hct 29.6 L (34.0-46.0) % RDW 16.2 H (11.5-15.5) % APTT (22.0-30.0) sec Chloride 110 H (98-107) mmol/L BUN 23 H (7-17) mg/dL Creatinine 1.83 H (0.52-1.04) mg/dL Glucose (74-99) mg/dL Alkaline Phosphatase (38-126) U/L Total Protein (6.3-8.2) g/dL Albumin (3.5-5.0) g/dL TSH 5.400 H (0.465-4.680) mIU/L
--- NOTE | 2024-03-12 15:01 | P.DS ---
Providers Date of admission: 03/11/24 16:11 Expected date of discharge: 03/12/24 Attending physician: Willie Guerrero Consults: 03/11/24 16:10 Consult Physician Urgent Consulting Provider: [facility] Reason/Comments: acute syncope, bradycardia Do you want consulting provider notified?: Yes Primary care physician: Ron [facility] Course: Discharge Diagnosis: Presyncope Symptomatic bradycardia Status post pacemaker placement Hypertension Dyslipidemia Neuropathic pain CKD stage III Hospital Course: Patient is a 73-year-old female with history of pacemaker placement for recurrent bradycardia, hypertension, dyslipidemia, presenting with presyncopal episode. In the ED, temperature was 97.8, pulse 51, respiratory rate 18, blood pressure 143/61, saturating at 97% on room air. Chest x-ray independently interpreted, shows possible retrocardiac opacity, pacemaker in place. WBC 7.1, hemoglobin 11.1, platelet 212, potassium 4.6, creatinine 1.85 around baseline, troponin negative. Patient being admitted as observation for further presyncope workup as well as possible pacemaker malfunction. Patient was seen by cardiology. Will need outpatient follow-up. Metoprolol discontinued at the time of discharge. Follow-up with PCP as well. Patient seen and examined at bedside. Vital signs reviewed and stable. General: Nontoxic, no distress, appears at stated age Derm: Warm, dry Head: Atraumatic, normocephalic, symmetric Eyes: EOMI, no lid lag, anicteric sclera Mouth: No lip lesion, mucus membranes moist Cardiovascular: S1S2 reg, no murmur Lungs: CTA bilateral, no rhonchi, no rales, no accessory muscle use Abdominal: Soft, nontender to palpation, no guarding, no appreciable organomegaly Ext: No gross muscle atrophy, no edema, no contractures Neuro: CN II-XI grossly intact, no focal neuro deficits Psych: Alert, oriented, appropriate affect A total of 32 minutes of time were spent preparing this complex discharge pita kaur. Patient was discharged on 03/12/2024 at 1459. Patient Condition at Discharge: Stable Plan - Discharge Summary Discharge Rx Participant: No New Discharge Prescriptions: Continue Atorvastatin [Lipitor] 40 mg PO HS Aspirin [Adult Low Dose Aspirin EC] 81 mg PO DAILY Gabapentin [Neurontin] 100 mg PO HS amLODIPine [Norvasc] 5 mg PO DAILY Changed Olmesartan Medoxomil 20 mg PO DAILY #0 Discontinued Metoprolol Succinate [Metoprolol Succinate ER] 25 mg PO DAILY Discharge Medication List Aspirin [Adult Low Dose Aspirin EC] 81 mg PO DAILY 05/11/17 [History] Atorvastatin [Lipitor] 40 mg PO HS 05/11/17 [History] Gabapentin [Neurontin] 100 mg PO HS 05/19/22 [History] amLODIPine [Norvasc] 5 mg PO DAILY 03/11/24 [History] Olmesartan Medoxomil 20 mg PO DAILY #0 03/12/24 [Rx] Follow up Appointment(s)/Referral(s): Ron Ojeda III, MD [Primary Care Provider] - 1-2 days Jaylen Barone MD [STAFF PHYSICIAN] - 1 Week Patient Instructions/Handouts: Bradycardia (DC) Activity/Diet/Wound Care/Special Instructions: Please see your PCP and cardiology outpatient. Discharge Disposition: HOME SELF-CARE
--- NOTE | 2024-03-12 17:23 | P.CRDCN ---
History of Present Illness Consult date: 03/12/24 History of present illness: HISTORY OF PRESENTING ILLNESS Patient is a 73-year-old female with past medical history of PPM because of sick sinus syndrome, follows up with Dr. Sanchez. Pacemaker was done by Dr. Welch. History of hypertension, dyslipidemia. She reports that she was standing at the checkout when she felt dizzy and lightheaded due to which she presented to the hospital. She denies any symptoms of substernal chest pressure or chest pain. She denies any symptoms of palpitation fluttering sensation in the chest. She denies any falls. She denies any passing out spells. REVIEW OF SYSTEMS 14 point review of system is negative except what is mentioned above in HPI. PHYSICAL EXAMINATION Vital signs reviewed. Head: Normocephalic. Eyes: Sclerae nonicteric. Neck: Brisk carotid upstroke, no jugular venous distention. Lungs: Clear to auscultation. Heart: Regular rate and rhythm, S1-S2, no S3, no murmur or rub. Abdomen: Soft nontender, positive bowel sounds. Extremities: No edema, intact distal pulses. Neuro: Alert, oritented, no focal deficits. Detailed neuro exam was not performed. ASSESSMENT Dizziness Essential hypertension Sick sinus syndrome status post PPM Dyslipidemia Neuropathic pain CKD Pertinent cardiac testing Orthostatic vital signs were within normal limits Troponin negative TSH 5.4, normal T4, creatinine stable at 1.8 Chest x-ray does not show signs of pulmonary congestion. EKG shows atrial paced V sensed rhythm. No signs of acute ischemia. PLAN Rule out of acute coronary syndrome No murmurs on cardiac examinations that would explain significant aortic stenosis or LVOT obstruction. Orthostatic signs are within normal limits. Pacemaker is working appropriately. Recommend outpatient follow-up with Dr. Barone in next 1 to 2 weeks. Recommend follow-up in the device clinic in next 1 to 2 weeks to get her device in terrogated. Recommend outpatient carotid Doppler if clinically indicated. Going forward I will discontinue her metoprolol. I will reduce her olmesartan from 40 mg to 20 mg, will continue amlodipine 5 mg, Lipitor 40 mg, aspirin 81 mg. Fall precautions Get evaluated for vertigo, recommend primary team to help with this Cleared from cardiovascular standpoint Mark Anthony Ruiz MD, FACC, RPVI Thank you for allowing [facility] [place] [facility] to participate in this patient's care. Feel free to reach out in case of any followup questions. Past Medical History Past Medical History: CVA/TIA, Diabetes Mellitus, Hearing Disorder / Deafness, Hyperlipidemia, Hypertension, Osteoarthritis (OA), Syncope Additional Past Medical History / Comment(s): SEE DR WELCH'S H&P FOR CARDIAC HISTORY, DIET CONTROLLED DIABETIC. occ. rt arm weakness and slight memory issue since stroke 07/31/15, PAST HX-migraines History of Any Multi-Drug Resistant Organisms: None Reported Past Surgical History: Adenoidectomy, Cholecystectomy, Pacemaker, Tonsillectomy Additional Past Surgical History / Comment(s): carrol cataracts with lens implants, loop recorder. since removed 06/2017, pacemaker generator change and atrial lead insertion 06/12/2022 Past Anesthesia/Blood Transfusion Reactions: Motion Sickness, Postoperative Nausea & Vomiting (PONV) Type of Cardiac Device: Permanent Pacemaker Device Placement Date:: 2017 Past Psychological History: No Psychological Hx Reported Smoking Status: Former smoker Past Alcohol Use History: None Reported Additional Past Alcohol Use History / Comment(s): STARTED SMOKING IN 1969 QUIT SMOKING IN 1970 SMOKED LESS THAN 1 PACK A WEEK Past Drug Use History: None Reported - Past Family History Mother Family Medical History: CVA/TIA, Hypertension Sister(s) Family Medical History: Cancer Additional Family Medical History / Comment(s): uterine and lymphoma Father Family Medical History: No Reported History Medications and Allergies Home Medications Medication Instructions Recorded Confirmed Type Aspirin [Adult Low Dose Aspirin EC] 81 mg PO DAILY 05/11/17 03/11/24 History Atorvastatin [Lipitor] 40 mg PO HS 05/11/17 03/11/24 History Gabapentin [Neurontin] 100 mg PO HS 05/19/22 03/11/24 History amLODIPine [Norvasc] 5 mg PO DAILY 03/11/24 03/11/24 History Olmesartan Medoxomil 20 mg PO DAILY #0 03/12/24 03/11/24 Rx Allergies Allergy/AdvReac Type Severity Reaction Status Date / Time amoxicillin Allergy Rash/Hives Verified 03/11/24 15:23 azithromycin Allergy Rash/Hives Verified 03/11/24 15:23 [From Zithromax Z-Bulmaro] erythromycin base Allergy Rash/Hives Verified 03/11/24 15:23 Physical Exam Vitals: Vital Signs Temp Pulse Pulse Pulse Pulse Resp BP 03/12/24 11:21 62 03/12/24 11:19 64 03/12/24 11:16 97.9 F 53 L 16 03/12/24 07:53 98.2 F 58 L 16 03/12/24 04:00 97.8 F 53 L 16 03/12/24 02:00 16 03/12/24 00:00 56 L 16 03/11/24 21:57 52 L 16 03/11/24 21:50 97.9 F 52 L 16 03/11/24 20:37 74 49 L 15 03/11/24 19:26 97.8 F 69 16 152/47 03/11/24 17:41 51 L 18 150/55 BP BP BP Pulse Ox 03/12/24 11:21 112/73 03/12/24 11:19 122/72 03/12/24 11:16 126/75 95 03/12/24 07:53 117/61 96 03/12/24 04:00 138/54 95 03/12/24 02:00 03/12/24 00:00 130/51 96 03/11/24 21:57 03/11/24 21:50 132/58 95 03/11/24 20:37 161/71 152/47 147/55 96 03/11/24 19:26 94 L 03/11/24 17:41 99 Intake and Output 03/12/24 03/12/24 03/12/24 06:59 14:59 22:59 Intake Total 150 Balance 150 Intake: Oral 150 Other: Voiding Method Toilet # Voids 1 3 # Bowel Movements 0 Weight 62.5 kg Results 03/12/24 07:09 03/12/24 07:09 CBC 03/12/24 Range/Units 07:09 WBC 6.4 (3.8-10.6) k/uL RBC 3.20 L (3.80-5.40) m/uL Hgb 9.8 L (11.4-16.0) gm/dL Hct 29.6 L (34.0-46.0) % Plt Count 195 (150-450) k/uL Comprehensive Metabolic Panel 03/12/24 Range/Units 07:09 Sodium 140 (137-145) mmol/L Potassium 4.7 (3.5-5.1) mmol/L Chloride 110 H (98-107) mmol/L Carbon Dioxide 28 (22-30) mmol/L BUN 23 H (7-17) mg/dL Creatinine 1.83 H (0.52-1.04) mg/dL Glucose 92 (74-99) mg/dL Calcium 8.7 (8.4-10.2) mg/dL Intake and Output 03/12/24 03/12/24 03/12/24 06:59 14:59 22:59 Intake Total 150 Balance 150 Intake: Oral 150 Other: Voiding Method Toilet # Voids 1 3 # Bowel Movements 0 Weight 62.5 kg 03/12/24 07:09 03/12/24 07:09
[2024-03-13] MEDS ORDERED: LOSARTAN 25 MG TAB PO SCH (09:00)
== END 2024-03-12 15:49 | disposition home or self-care (01) | DRG 312 ==
LOC: EC 12:50 → 3SCARD 16:11
PROVIDERS: ADMIT Student in an Organized Health Care Education/Training Program; ATTEND Student in an Organized Health Care Education/Training Program
DX: R55 Syncope and collapse (principal); E11.22 Type 2 diabetes mellitus with diabetic chronic kidney disease; E78.5 Hyperlipidemia, unspecified; I49.5 Sick sinus syndrome; I12.9 Hypertensive chronic kidney disease with stage 1 through stage 4 chronic kidney disease, or unspecified chronic kidney disease; Z96.1 Presence of intraocular lens; N18.30 Chronic kidney disease, stage 3 unspecified; I69.331 Monoplegia of upper limb following cerebral infarction affecting right dominant side; Z87.891 Personal history of nicotine dependence; Z95.0 Presence of cardiac pacemaker; Z98.42 Cataract extraction status, left eye; Z98.41 Cataract extraction status, right eye; Z79.82 Long term (current) use of aspirin; Z79.899 Other long term (current) drug therapy
CPT/HCPCS: 36415; 71046; 80048; 80053; 83735; 84145; 84439; 84443; 84484; 85025; 85610; 85730; 93005; 96360; 96361; 99285

== ENCOUNTER 2024-05-31 14:04 | Emergency (ER) | payer MEDICARE ==
[2024-05-31 15:26] LABS: Basophils # (A) 0.1 k/uL (0-0.2); Basophils % (A) 0 %; Eosinophils # (A) 0.1 k/uL (0-0.7); Eosinophils % (A) 1 %; HCT 40.1 % (34.0-46.0); HGB 12.6 gm/dL (11.4-16.0); Hypochromasia Slight; Lymphocytes # (A) 1.2 k/uL (1.0-4.8); Lymphocytes % (A) 11 %; MCH 28.7 pg (25.0-35.0); MCHC 31.5 g/dL (31.0-37.0); MCV 91.1 fL (80.0-100.0); Mean Platelet Volume 9.8; Monocytes # (A) 0.6 k/uL (0-1.0); Monocytes % (A) 6 %; Neutrophils # (A) 8.9 k/uL (1.3-7.7); Neutrophils % (A) 81 %; Platelet Count 202 k/uL (150-450); RDW 15.2 % (11.5-15.5); WBC 10.9 k/uL (3.8-10.6)
[2024-05-31 15:29] LABS: ALT 17 U/L (4-34); AST 23 U/L (14-36); African American GFR (CKD) 24 (>60 ml/min/1.73 sqM); Albumin 4.4 g/dL (3.5-5.0); Alkaline Phosphatase 134 U/L (38-126); Anion Gap 7 mmol/L; Blood Urea Nitrogen 25 mg/dL (7-17); Calcium 9.7 mg/dL (8.4-10.2); Carbon Dioxide 27 mmol/L (22-30); Chloride 108 mmol/L (98-107); Glucose 143 mg/dL (74-99); Non-African American GFR(CKD) 21 (>60 ml/min/1.73 sqM); Potassium 5.5 mmol/L (3.5-5.1); Sodium 142 mmol/L (137-145); Total Bilirubin 0.5 mg/dL (0.2-1.3); Total Protein 6.8 g/dL (6.3-8.2)
[2024-05-31 15:32] LABS: INR 0.9 (<1.2); Partial Thromboplastin Time 21.9 sec (22.0-30.0); Prothrombin Time 10.3 sec (10.0-12.5)
--- NOTE | 2024-05-31 15:47 | XR ---
EXAMINATION TYPE: XR chest 2V DATE OF EXAM: 05/31/2024 3:39 PM COMPARISON: Chest radiographs from 03/11/2024 CLINICAL INDICATION: Female, 73 years old with history of syncope; [facility] TECHNIQUE: XR chest 2V Frontal and lateral views of the chest. FINDINGS: Lungs/Pleura: There is no evidence of pleural effusion, focal consolidation, or pneumothorax. Pulmonary vascularity: Unremarkable. Heart/mediastinum: Cardiomediastinal silhouette is unremarkable. Three lead cardiac conduction device overlying the left hemithorax with lead tips projecting over the right ventricle, right atrium and c oronary sinus. Musculoskeletal: No acute osseous pathology. IMPRESSION: No acute cardiopulmonary disease/process. [facility], , 05/31/2024 3:45 PM
--- NOTE | 2024-05-31 17:07 | ED ---
Syncope HPI - General Chief Complaint: Syncope Stated Complaint: syncope Time Seen by Provider: 05/31/24 16:20 Source: patient, EMS, RN notes reviewed, old records reviewed Mode of arrival: EMS Limitations: no limitations - History of Present Illness Initial Comments: This is a 73-year-old female who was at the store shopping when she became lightheaded dizzy and weak almost passed out was brought to the ER by EMS with symptoms dramatically improved. Patient feels well here in the ER with no headache chest pain shortness of breath abdominal pain. No recent change in medications history of anemia improving. No travel or sick contacts no recent f ever nausea vomiting or diarrhea MD Complaint: almost passed out -: hour(s) Prodromal Symptoms: lightheaded -: second(s) Witnessed: yes - by bystander Current Symptoms: back to baseline History: previous syncopal episode Context: during exertion Treatments Prior to Arrival: none - Related Data Home Medications Medication Instructions Recorded Confirmed Aspirin [Adult Low Dose Aspirin EC] 81 mg PO DAILY 05/11/17 03/11/24 Atorvastatin [Lipitor] 40 mg PO HS 05/11/17 03/11/24 Gabapentin [Neurontin] 100 mg PO HS 05/19/22 03/11/24 amLODIPine [Norvasc] 5 mg PO DAILY 03/11/24 03/11/24 Previous Rx's Medication Instructions Recorded Olmesartan Medoxomil 20 mg PO DAILY #0 03/12/24 Allergies Allergy/AdvReac Type Severity Reaction Status Date / Time amoxicillin Allergy Rash/Hives Verified 05/31/24 14:28 azithromycin Allergy Rash/Hives Verified 05/31/24 14:28 [From Zithromax Z-Bulmaro] erythromycin base Allergy Rash/Hives Verified 05/31/24 14:28 Review of Systems ROS Statement: Those systems with pertinent positive or pertinent negative responses have been documented in the HPI. ROS Other: All systems not noted in ROS Statement are negative. Past Medical History Past Medical History: CVA/TIA, Diabetes Mellitus, Hearing Disorder / Deafness, Hyperlipidemia, Hypertension, Osteoarthritis (OA), Syncope Additional Past Medical History / Comment(s): SEE DR WELCH'S H&P FOR CARDIAC HISTORY, DIET CONTROLLED DIABETIC. occ. rt arm weakness and slight memory issue since stroke 07/31/15, PAST HX-migraines History of Any Multi-Drug Resistant Organisms: None Reported Past Surgical History: Adenoidectomy, Cholecystectomy, Pacemaker, Tonsillectomy Additional Past Surgical History / Comment(s): carrol cataracts with lens implants, loop recorder. since removed 06/2017, pacemaker generator change and atrial lead insertion 06/12/2022 Past Anesthesia/Blood Transfusion Reactions: Motion Sickness, Postoperative Nausea & Vomiting (PONV) Type of Cardiac Device: Permanent Pacemaker Device Placement Date:: 2017 Past Psychological History: No Psychological Hx Reported Smoking Status: Former smoker Past Alcohol Use History: None Reported Past Drug Use History: None Reported - Past Family History Mother Family Medical History: CVA/TIA, Hypertension Sister(s) Family Medical History: Cancer Additional Family Medical History / Comment(s): uterine and lymphoma Father Family Medical History: No Reported History General Exam Limitations: no limitations General appearance: alert, in no apparent distress, anxious Head exam: Present: atraumatic, normocephalic, normal inspection Eye exam: Present: normal appearance, PERRL, EOMI. Absent: scleral icterus, conjunctival injection, periorbital swelling ENT exam: Present: normal exam, mucous membranes moist Neck exam: Present: normal inspection. Absent: tenderness, meningismus, lymphadenopathy Respiratory exam: Present: normal lung sounds bilaterally. Absent: respiratory distress, wheezes, rales, rhonchi, stridor Cardiovascular Exam: Present: regular rate, normal rhythm, normal heart sounds. Absent: systolic murmur, diastolic murmur, rubs, gallop, clicks GI/Abdominal exam: Present: soft, normal bowel sounds. Absent: distended, tenderness, guarding, rebound, rigid Extremities exam: Present: normal inspection, full ROM, normal capillary refill. Absent: tenderness, pedal edema, joint swelling, calf tenderness Back exam: Present: normal inspection Neurological exam: Present: alert, oriented X3, CN II-XII intact Psychiatric exam: Present: normal affect, normal mood Skin exam: Present: warm, dry, intact, normal color. Absent: rash Course Vital Signs 05/31/24 05/31/24 14:28 18:59 Temperature 97.3 F L 97.9 F Pulse Rate 70 62 Respiratory 18 16 Rate Blood Pressure 99/68 125/65 O2 Sat by Pulse 98 97 Oximetry - Reevaluation(s) Reevaluation #1: Medical records reviewed Reevaluation #2: Patient has no recurrent syncopal event here in the ER Reevaluation #3: Patient informed of results and questions answered Reevaluation #4: Was pt. sent in by a medical professional or institution ([facility], CUSTOMER RETENTION SPECIALIST, urgent care, hospital, or [facility]...) When possible be specific @ -no Did you speak to anyone other than the patient for history (EMS, parent, family, police, friend...)? What history was obtained from this source @ -no Did you review nursing and triage notes (agree or disagree)? Why? @ -agree Are old charts reviewed (outside hosp., previous admission, EMS record, old EKG, old radiological studies, urgent care reports/EKG's, [facility] records)? Report findings @ -yes Differential Diagnosis (chest pain, altered mental status, abdominal pain women, abdominal pain men, vaginal bleeding, weakness, fever, dyspnea, syncope, headache, dizziness, GI bleed, back pain, seizure, CVA, palpatations, mental hea lth, musculoskeletal)? @ -prior EKG interpreted by me (3pts min.). @ -no X-rays interpreted by me (1pt min.). @ -yes negative for acute disease CT interpreted by me (1pt min.). @ -no U/S interpreted by me (1pt. min.). @ -no What testing was considered but not performed or refused? (CT, X-rays, U/S, labs)? Why? @ -none What meds were considered but not given or refused? Why? @ -none Did you discuss the management of the patient with other professionals (professionals i.e. [facility], CUSTOMER RETENTION SPECIALIST, lab, RT, psych nurse, home health care social worker, prop maker, teacher, combat systems officer, field case manager)? Give summary @ -no Was smoking cessation discussed for >3mins.? @ -no Was critical care preformed (if so, how long)? @ -no Were there social determinants of health that impacted care today? How? (Homelessness, low income, unemployed, alcoholism, drug addiction, transportation, low edu. Level, literacy, decrease access to med. care, nursing home, rehab)? @ -none Was there de-escalation of care discussed even if they declined (Discuss DNR or withdrawal of care, Hospice)? DNR status @ -no What co-morbidities impacted this encounter? (DM, HTN, Smoking, COPD, CAD, Cancer, CVA, ARF, Chemo, Hep., AIDS, mental health diagnosis, sleep apnea, morbid obesity)? @ -none Was patient admitted / discharged? Hospital course, mention meds given and route, prescriptions, significant lab abnormalities, going to OR and other pert inent info. @ - 73 female with near syncopal event. Patient had mildly elevated potassium level here in the ER, that is treated and patient can be discharged home, feeling well no recurrent episodes and feels good for discharge home Discharge Undiagnosed new problem with uncertain prognosis? @ -no Drug Therapy requiring intensive monitoring for toxicity (Heparin, Nitro, Insulin, Cardizem)? @ -no Were any procedures done? @ -no Diagnosis/symptom? @ -Near syncope elevated potassium Acute, or Chronic, or Acute on Chronic? @ -Acute Uncomplicated (without systemic symptoms) or Complicated (systemic symptoms)? @ -Complicated Side effects of treatment? @ -no Exacerbation, Progression, or Severe Exacerbation? @ -exacerbation Poses a threat to life or bodily function? How? (Chest pain, USA, DC, pneumonia, PE, COPD, DKA, ARF, appy, cholecystitis, CVA, Diverticulitis, Homicidal, Suicidal, threat to staff... and all critical care pts) @ -yes with syncope event Reevaluation #5: Differential Syncope: Valvular disease, hypertrophic cardiomyopathy, pulmonary embolism, tamponade, tachycardia, bradycardia, DC, hypovolemia, hemorrhage, dissection, anemia, intracranial hemorrhage, seizure, hypoglycemia, carbon monoxide poisoning, this is not meant to be an all-inclusive list. Medical Decision Making - Medical Decision Making 73 female with near syncopal event. Patient had mildly elevated potassium level here in the ER, that is treated and patient can be discharged home, feeling well no recurrent episodes and feels good for discharge home - Lab Data Result diagrams: 05/31/24 15:08 05/31/24 15:08 Lab Results 05/31/24 05/31/24 05/31/24 Range/Units 15:08 15:08 15:08 WBC 10.9 H (3.8-10.6) k/uL RBC 4.40 (3.80-5.40) m/uL Hgb 12.6 (11.4-16.0) gm/dL Hct 40.1 (34.0-46.0) % MCV 91.1 (80.0-100.0) fL MCH 28.7 (25.0-35.0) pg MCHC 31.5 (31.0-37.0) g/dL RDW 15.2 (11.5-15.5) % Plt Count 202 (150-450) k/uL MPV 9.8 Neutrophils % 81 % Lymphocytes % 11 % Monocytes % 6 % Eosinophils % 1 % Basophils % 0 % Neutrophils # 8.9 H (1.3-7.7) k/uL Lymphocytes # 1.2 (1.0-4.8) k/uL Monocytes # 0.6 (0-1.0) k/uL Eosinophils # 0.1 (0-0.7) k/uL Basophils # 0.1 (0-0.2) k/uL Hypochromasia Slight PT 10.3 (10.0-12.5) sec INR 0.9 (<1.2) APTT 21.9 L (22.0-30.0) sec Sodium 142 (137-145) mmol/L Potassium 5.5 H (3.5-5.1) mmol/L Chloride 108 H (98-107) mmol/L Carbon Dioxide 27 (22-30) mmol/L Anion Gap 7 mmol/L BUN 25 H (7-17) mg/dL Creatinine 2.26 H (0.52-1.04) mg/dL Est GFR (CKD-EPI)AfAm 24 (>60 ml/min/1.73 sqM) Est GFR (CKD-EPI)NonAf 21 (>60 ml/min/1.73 sqM) Glucose 143 H (74-99) mg/dL Calcium 9.7 (8.4-10.2) mg/dL Total Bilirubin 0.5 (0.2-1.3) mg/dL AST 23 (14-36) U/L ALT 17 (4-34) U/L Alkaline Phosphatase 134 H (38-126) U/L Troponin I (0.000-0.034) ng/mL Total Protein 6.8 (6.3-8.2) g/dL Albumin 4.4 (3.5-5.0) g/dL 05/31/24 Range/Units 15:08 WBC (3.8-10.6) k/uL RBC (3.80-5.40) m/uL Hgb (11.4-16.0) gm/dL Hct (34.0-46.0) % MCV (80.0-100.0) fL MCH (25.0-35.0) pg MCHC (31.0-37.0) g/dL RDW (11.5-15.5) % Plt Count (150-450) k/uL MPV Neutrophils % % Lymphocytes % % Monocytes % % Eosinophils % % Basophils % % Neutrophils # (1.3-7.7) k/uL Lymphocytes # (1.0-4.8) k/uL Monocytes # (0-1.0) k/uL Eosinophils # (0-0.7) k/uL Basophils # (0-0.2) k/uL Hypochromasia PT (10.0-12.5) sec INR (<1.2) APTT (22.0-30.0) sec Sodium (137-145) mmol/L Potassium (3.5-5.1) mmol/L Chloride (98-107) mmol/L Carbon Dioxide (22-30) mmol/L Anion Gap mmol/L BUN (7-17) mg/dL Creatinine (0.52-1.04) mg/dL Est GFR (CKD-EPI)AfAm (>60 ml/min/1.73 sqM) Est GFR (CKD-EPI)NonAf (>60 ml/min/1.73 sqM) Glucose (74-99) mg/dL Calcium (8.4-10.2) mg/dL Total Bilirubin (0.2-1.3) mg/dL AST (14-36) U/L ALT (4-34) U/L Alkaline Phosphatase (38-126) U/L Troponin I <0.012 (0.000-0.034) ng/mL Total Protein (6.3-8.2) g/dL Albumin (3.5-5.0) g/dL - Radiology Data Radiology results: report reviewed (Chest x-ray is negative for acute disease), image reviewed Disposition Clinical Impression: Near syncope, Hyperkalemia Disposition: HOME SELF-CARE Condition: Fair Instructions (If sedation given, give patient instructions): Near Syncope (ED) Is patient prescribed a controlled substance at d/c from ED?: No Referrals: Ron Ojeda III, MD [Primary Care Provider] - 1-2 days Time of Disposition: 18:00
[2024-05-31] MEDS: DEXTROSE 50% SYRINGE 50 ML IVP STA (17:58)
[2024-05-31] MEDS: SODIUM ZIRCONIUM CYCLOSILICATE 10 GM PACKET PO ONE (18:00)
[2024-05-31] MEDS: INSULIN REGULAR 100 UNIT/ML VIAL (IV) IV ONE (18:00)
[2024-05-31] MEDS: SODIUM BICARB 8.4% 50 ML SYR (1 MEQ/ML) IV STA (18:00)
[2024-05-31] MEDS: SODIUM CHLORIDE 0.9% 1,000 ML IV STA (18:17)
[2024-05-31 19:01] VITALS: BP 125/65; PULSE 62; RESP 16; TEMP 97.9
== END 2024-05-31 19:42 | disposition home or self-care (01) ==
LOC: EC 14:04
DX: R55 Syncope and collapse (principal); E87.5 Hyperkalemia; Z86.73 Personal history of transient ischemic attack (TIA), and cerebral infarction without residual deficits; Z87.891 Personal history of nicotine dependence; Z88.1 Allergy status to other antibiotic agents; Z88.0 Allergy status to penicillin; Z88.8 Allergy status to other drugs, medicaments and biological substances
CPT/HCPCS: 36415; 71046; 80053; 84484; 85025; 85610; 85730; 93005; 96361; 96374; 96375; 99284